=== PATIENT | female | born 1940 | race Caucasian/White ===

== ENCOUNTER 2018-05-06 14:53 | Inpatient (IN) | payer MEDICARE ==
[~2018-05-06] VITALS: Ht 160 cm; Wt 69.0 kg
[2018-05-06] MEDS ORDERED: normal saline 1000ML IV soln IVB ONE (15:15)
[2018-05-06 15:22] LABS: BASOPHILS # (AUTO) 0.1 X10'3 (0-0.2); BASOPHILS % (AUTO) 1.3 % (0-1); EOSINOPHILS # (AUTO) 0.2 X10'3 (0-0.9); EOSINOPHILS % (AUTO) 1.8 % (0-6); HEMATOCRIT 38.6 % (35.0-45.0); HEMOGLOBIN 12.9 g/dl (12.0-16.0); LYMPHOCYTES # (AUTO) 2.6 X10'3 (1.1-4.8); LYMPHOCYTES % (AUTO) 24.6 % (21-51); MEAN CORPUSCULAR HEMOGLOBIN 30.3 PG (27.0-31.0); MEAN CORPUSCULAR HGB CONC 33.5 % (33.0-36.5); MEAN CORPUSCULAR VOLUME 90.6 FL (78-98); MEAN PLATELET VOLUME 8.3 FL (7.4-10.4); MONOCYTES # (AUTO) 0.6 X10'3 (0-0.9); MONOCYTES % (AUTO) 5.3 % (2-12); NEUTROPHILS # (AUTO) 7.1 X10'3 (1.8-7.7); PLATELET COUNT 272 X10'3 (140-440); RED BLOOD COUNT 4.26 X10'6 (4.20-5.60); RED CELL DISTRIBUTION WIDTH 13.7 % (11.5-14.5); WHITE BLOOD COUNT 10.6 X10'3 (4.5-11.0)
[2018-05-06 15:35] LABS: ALANINE AMINOTRANSFERASE 16 U/L (12-78); ALBUMIN 3.7 G/DL (3.4-5.0); ALBUMIN/GLOBULIN RATIO 0.9 (1.1-1.5); ALKALINE PHOSPHATASE 66 IU/L (46-116); ANION GAP 11 (8-16); ASPARTATE AMINO TRANSFERASE 15 U/L (10-37); BILIRUBIN,TOTAL 0.3 MG/DL (0.1-1.0); BLOOD UREA NITROGEN 13 MG/DL (7-18); CALCIUM 9.7 MG/DL (8.5-10.1); CHLORIDE 103 MMOL/L (99-107); CREATININE 0.65 MG/DL (0.40-0.90); GLUCOSE 98 MG/DL (70-104); POTASSIUM 3.5 MMOL/L (3.5-5.1); SODIUM 141 MMOL/L (135-145); TOTAL CARBON DIOXIDE 26.8 MMOL/L (24-32); TOTAL PROTEIN 7.6 G/DL (6.4-8.2); eGFR 88 ML/MIN
[2018-05-06 15:37] LABS: PARTIAL THROMBOPLASTIN TIME 31 SECONDS (22-32); PROTHROMBIN TIME 10.2 SECONDS (9.0-12.0)
[2018-05-06 15:38] LABS: TROPONIN I < 0.04 NG/ML (0.0-0.05)
[2018-05-06] MEDS ORDERED: aspirin 325mg tablet PO ONE (16:15)
[2018-05-06] MEDS ORDERED: iohexol 350MG/ML 100ml bottle IV ONE (16:19)
[2018-05-06] MEDS ORDERED: temazepam 15mg capsule PO PRN (21:00)
[2018-05-06] MEDS ORDERED: acetaminophen 650mg rectal suppository RC PRN (21:40)
[2018-05-06] MEDS ORDERED: HYDROcodone/acetaminophen 5mg/325mg tablet PO PRN (21:40)
[2018-05-06] MEDS ORDERED: normal saline 1000ml 1,000 ML IV SCH (21:40)
[2018-05-06] MEDS ORDERED: metoclopramide 5 mg/ml inj IV PRN (21:40)
[2018-05-06] MEDS ORDERED: mag hydrox/Alum hydrox/simeth 30ml oral suspension PO PRN (21:40)
[2018-05-06] MEDS ORDERED: ondansetron/PF 4mg/2ml inj IV PRN (21:40)
[2018-05-06] MEDS ORDERED: acetaminophen 325mg tablet PO PRN ×2 (21:40)
[2018-05-06] MEDS ORDERED: diphenhydrAMINE 25mg capsule PO PRN (21:40)
[2018-05-06] MEDS ORDERED: HYDROmorphone 1 mg/ml syringe IV PRN (21:40)
[2018-05-06] MEDS ORDERED: diphenhydrAMINE 50 mg/ml inj IV PRN (21:40)
[2018-05-06] MEDS ORDERED: morphine 2 MG/ML inj. syringe IV PRN (21:40)
[2018-05-06] MEDS ORDERED: magnesium hydroxide 30ml (MOM) UD suspension PO PRN (21:40)
[2018-05-06] MEDS ORDERED: MULT1TAB74 PO (22:09)
[2018-05-06] MEDS ORDERED: LISI-642 PO (22:09)
[2018-05-06] MEDS ORDERED: SYN0.088T PO (22:09)
[2018-05-06 22:15] LABS: MAGNESIUM 2.1 MG/DL (1.5-2.4); PHOSPHORUS 3.7 MG/DL (2.3-4.5)
[2018-05-06 22:46] VITALS: BP_SYST 178; BP_SYST 181; BP_DIAS 72; BP_DIAS 73
[2018-05-06] MEDS: clopidogrel 75mg tablet PO SCH (23:14)
[2018-05-06] MEDS ORDERED: hydrALAZINE 20mg/ml inj. IV PRN (23:50)
[2018-05-07] MEDS ORDERED: IBUP-24 PO (00:19)
[2018-05-07 02:15] VITALS: BP 153/68
[2018-05-07 04:03] LABS: CLARITY,URINE CLEAR (Clear); COLOR,URINE YELLOW (Yellow); GLUCOSE, URINE NEGATIVE (Neg); KETONES,URINE NEGATIVE (Neg); LEUKOCYTE ESTERASE ,URINE TRACE (Neg); NITRITES, URINE NEGATIVE (Neg); OCCULT BLOOD,URINE TRACE-INTACT (Neg); PH,URINE 6.5 (4.8-8.0); PROTEIN,URINE NEGATIVE (Neg); UROBILINOGEN,URINE 0.2 E.U/dL (0.2-1.0)
[2018-05-07 04:04] LABS: UA COLLECTION TYPE CLN CATCH MIDSTREAM
[2018-05-07 04:09] LABS: RBC,URINE 0-2 /HPF (0-2); WBC,URINE 0-4 /HPF (0-4)
[2018-05-07 04:10] LABS: BACTERIA,URINE FEW /HPF (Neg); SQUAMOUS EPITHELIAL CELL,UR FEW /LPF (FEW)
[2018-05-07 06:00] VITALS: BP 147/71
[2018-05-07 06:26] LABS: BASOPHILS % (AUTO) 0.5 % (0-1); EOSINOPHILS # (AUTO) 0.1 X10'3 (0-0.9); EOSINOPHILS % (AUTO) 1.6 % (0-6); HEMATOCRIT 37.6 % (35.0-45.0); HEMOGLOBIN 12.7 g/dl (12.0-16.0); LYMPHOCYTES % (AUTO) 27.8 % (21-51); MEAN CORPUSCULAR HEMOGLOBIN 30.5 PG (27.0-31.0); MEAN CORPUSCULAR HGB CONC 33.7 % (33.0-36.5); MEAN CORPUSCULAR VOLUME 90.5 FL (78-98); MEAN PLATELET VOLUME 8.2 FL (7.4-10.4); MONOCYTES # (AUTO) 0.4 X10'3 (0-0.9); MONOCYTES % (AUTO) 5.2 % (2-12); NEUTROPHILS # (AUTO) 4.6 X10'3 (1.8-7.7); NEUTROPHILS % (AUTO) 64.9 % (42-75); PLATELET COUNT 240 X10'3 (140-440); RED BLOOD COUNT 4.15 X10'6 (4.20-5.60); RED CELL DISTRIBUTION WIDTH 13.6 % (11.5-14.5); WHITE BLOOD COUNT 7.1 X10'3 (4.5-11.0)
[2018-05-07 06:45] LABS: ALANINE AMINOTRANSFERASE 17 U/L (12-78); ALBUMIN 3.2 G/DL (3.4-5.0); ALBUMIN/GLOBULIN RATIO 0.9 (1.1-1.5); ALKALINE PHOSPHATASE 59 IU/L (46-116); ANION GAP 10 (8-16); ASPARTATE AMINO TRANSFERASE 15 U/L (10-37); BILIRUBIN,TOTAL 0.5 MG/DL (0.1-1.0); BLOOD UREA NITROGEN 11 MG/DL (7-18); CALCIUM 8.8 MG/DL (8.5-10.1); CHLORIDE 106 MMOL/L (99-107); CHOL/HDL RATIO 3.5 (0.00-4.99); CHOLESTEROL 187 MG/DL (0-200); CREATININE 0.61 MG/DL (0.40-0.90); GLUCOSE 87 MG/DL (70-104); HDL CHOLESTEROL 54 MG/DL (35-60); LDL CHOLESTEROL 121 MG/DL (50-100); POTASSIUM 3.3 MMOL/L (3.5-5.1); SODIUM 142 MMOL/L (135-145); TOTAL CARBON DIOXIDE 26.1 MMOL/L (24-32); TOTAL PROTEIN 6.7 G/DL (6.4-8.2); TRIGLYCERIDES 116 MG/DL (20-135); eGFR > 90 ML/MIN
[2018-05-07] MEDS ORDERED: potassium Cl 40MEQ/NS 500ml 500 ML IV PRN ×2 (07:00)
[2018-05-07] MEDS ORDERED: potassium Cl 20 mEq SR tablet PO PRN ×2 (07:00)
[2018-05-07 08:00] VITALS: BP_SYST 164; BP_SYST 169; BP_SYST 176; BP_DIAS 69; BP_DIAS 80; BP_DIAS 89
[2018-05-07] MEDS ORDERED: docusate sod 100mg capsule PO SCH (08:00)
[2018-05-07] MEDS: clopidogrel 75mg tablet PO SCH (08:00)
[2018-05-07] MEDS ORDERED: clopidogrel 75mg tablet PO SCH (08:00)
[2018-05-07] MEDS ORDERED: atorvastatin 20mg tablet PO SCH ×2 (08:00)
[2018-05-07] MEDS ORDERED: aspirin 81mg tab.chew PO SCH (08:30)
[2018-05-07 10:00] VITALS: BP 152/64
[2018-05-07] MEDS ORDERED: ASPI81TA52 PO (11:56)
[2018-05-07] MEDS ORDERED: famotidine 20mg tablet PO SCH (21:00)
[2018-05-08 05:24] LABS: RPR Non Reactive (Non Reactive)
== END 2018-05-07 13:35 | disposition home or self-care (01) | DRG 69 ==
LOC: ER 14:54 → ORTHO 4S 21:40 → CMPBEDREQ 23:58
PROVIDERS: ADMIT Family Medicine; ATTEND Hospitalist
PROC: B3251ZZ Computerized Tomography (CT Scan) of Bilateral Common Carotid Arteries using Low Osmolar Contrast (ICD-10-PCS; principal; 2018-05-06)
PROC: B32G1ZZ Computerized Tomography (CT Scan) of Bilateral Vertebral Arteries using Low Osmolar Contrast (ICD-10-PCS; 2018-05-06)
PROC: B3281ZZ Computerized Tomography (CT Scan) of Bilateral Internal Carotid Arteries using Low Osmolar Contrast (ICD-10-PCS; 2018-05-06)
DX: G45.9 Transient cerebral ischemic attack, unspecified (principal); I10 Essential (primary) hypertension; R42 Dizziness and giddiness; Z79.899 Other long term (current) drug therapy; Z79.82 Long term (current) use of aspirin; Z79.890 Hormone replacement therapy; Z86.73 Personal history of transient ischemic attack (TIA), and cerebral infarction without residual deficits
CPT/HCPCS: 36415; 70450; 70496; 70498; 70551; 71045; 80053; 80061; 81001; 83735; 83880; 84100; 84443; 84484; 85025; 85610; 85730; 86592; 87070; 87088; 93005; 93306; 93880; 96360; 99285; G0378; Q9967

== ENCOUNTER 2023-11-19 03:49 | Emergency (ER) | payer MEDICARE ==
[~2023-11-19] VITALS: Ht 157.5 cm; Wt 62.9 kg
[~2023-11-19 03:49] MED LIST: ASPI81TA52 PO; IBUP-24 PO; LISI-642 PO; LORA10TA61 PO; MULT-620 PO
[2023-11-19 05:10] VITALS: TEMP 97.5
[2023-11-19 05:44] LABS: BASOPHILS # (AUTO) 0.1 X10'3 (0-0.2); BASOPHILS % (AUTO) 0.5 % (0-1); EOSINOPHILS # (AUTO) 0.1 X10'3 (0-0.9); EOSINOPHILS % (AUTO) 0.8 % (0-6); HEMATOCRIT 43.2 % (35.0-45.0); HEMOGLOBIN 14.8 g/dl (12.0-16.0); LYMPHOCYTES # (AUTO) 2.1 X10'3 (1.1-4.8); LYMPHOCYTES % (AUTO) 21.7 % (21-51); MEAN CORPUSCULAR HEMOGLOBIN 32.5 PG (27.0-31.0); MEAN CORPUSCULAR HGB CONC 34.3 g/dL (33.0-36.5); MEAN CORPUSCULAR VOLUME 94.6 FL (78-98); MEAN PLATELET VOLUME 8.5 FL (7.4-10.4); MONOCYTES # (AUTO) 0.7 X10'3 (0-0.9); NEUTROPHILS # (AUTO) 6.9 X10'3 (1.8-7.7); PLATELET COUNT 278 X10'3 (140-440); RED BLOOD COUNT 4.57 X10'6 (4.20-5.60); RED CELL DISTRIBUTION WIDTH 13.4 % (11.5-14.5); WHITE BLOOD COUNT 9.8 X10'3 (4.5-11.0)
[2023-11-19 06:04] LABS: ALBUMIN 3.4 G/DL (3.4-5.0); ANION GAP 7 (8-16); BLOOD UREA NITROGEN 13 MG/DL (7-18); BUN/CREATININE RATIO 21.3 (10.0-20.0); CALCIUM 9.1 MG/DL (8.5-10.1); CHLORIDE 100 MMOL/L (99-107); CREATININE 0.61 MG/DL (0.40-0.90); GLUCOSE 88 MG/DL (70-104); POTASSIUM 4.2 MMOL/L (3.5-5.1); PRO BRAIN NATRIURETIC PEPTIDE 75 PG/ML (0-450); SODIUM 135 MMOL/L (135-145); TOTAL CARBON DIOXIDE 27.7 MMOL/L (24-32); eCRCL 54 ML/MIN; eGFR > 90 ML/MIN
[2023-11-19] MEDS: normal saline 1000ml 1,000 ML IV SCH (06:15)
[2023-11-19] MEDS ORDERED: ibuprofen tablet 400 MG TABLET PO PRN (07:05)
[2023-11-19] MEDS: aspirin 81mg, enteric-coated 1 TAB TABLET.DR PO ONE (07:34)
[2023-11-19] MEDS: ketorolac tromethamine 15mg/ml inj. IV ONE (07:34)
[2023-11-19 07:47] LABS: BILIRUBIN,URINE NEGATIVE (Neg); CLARITY,URINE CLEAR (Clear); COLOR,URINE YELLOW (Yellow); GLUCOSE, URINE NEGATIVE (Neg); KETONES,URINE NEGATIVE (Neg); LEUKOCYTE ESTERASE ,URINE NEGATIVE (Neg); NITRITES, URINE NEGATIVE (Neg); OCCULT BLOOD,URINE NEGATIVE (Neg); PROTEIN,URINE NEGATIVE (Neg); UROBILINOGEN,URINE 0.2 E.U/dL (0.2-1.0)
[2023-11-19 07:53] LABS: UA COLLECTION TYPE STRAIGHT CATH
[2023-11-19] MEDS: clopidogrel 75mg tablet PO ONE (07:56)
[2023-11-19 08:09] LABS: ALANINE AMINOTRANSFERASE 12 U/L (12-78); ALBUMIN 2.9 G/DL (3.4-5.0); ALBUMIN/GLOBULIN RATIO 0.9 (1.1-1.5); ALKALINE PHOSPHATASE 63 IU/L (46-116); ANION GAP 8 (8-16); ASPARTATE AMINO TRANSFERASE 12 U/L (10-37); BILIRUBIN,TOTAL 0.7 MG/DL (0.1-1.0); BLOOD UREA NITROGEN 12 MG/DL (7-18); CALCIUM 8.3 MG/DL (8.5-10.1); CHLORIDE 104 MMOL/L (99-107); CREATININE 0.63 MG/DL (0.40-0.90); GLUCOSE 83 MG/DL (70-104); POTASSIUM 3.8 MMOL/L (3.5-5.1); SODIUM 137 MMOL/L (135-145); TOTAL PROTEIN 6.3 G/DL (6.4-8.2); eCRCL 53 ML/MIN; eGFR 90 ML/MIN
[2023-11-19 08:16] LABS: MAGNESIUM 1.9 MG/DL (1.5-2.4)
[2023-11-19 10:23] VITALS: BP 157/96; PULSE 64; RESP 16; O2SAT 98
== END 2023-11-19 10:28 | disposition home or self-care (01) ==
LOC: ER 03:50
DX: R53.1 Weakness (principal); I10 Essential (primary) hypertension; G89.29 Other chronic pain; Z88.8 Allergy status to other drugs, medicaments and biological substances; Z79.82 Long term (current) use of aspirin; Z79.1 Long term (current) use of non-steroidal anti-inflammatories (NSAID); Z86.73 Personal history of transient ischemic attack (TIA), and cerebral infarction without residual deficits; Z90.49 Acquired absence of other specified parts of digestive tract
CPT/HCPCS: 36415; 70450; 71045; 80048; 80053; 81003; 83605; 83735; 83880; 84145; 84439; 84443; 84484; 85025; 87040; 93005; 93306; 96361; 96374; 99285; J1885; J7030; C1758

== ENCOUNTER 2024-01-20 11:18 | Emergency (ER) | payer MEDICARE ==
[~2024-01-20] VITALS: Ht 157.5 cm; Wt 63.1 kg
[2024-01-20] MEDS: normal saline 500ml IV soln 500 ML IV SCH (11:48)
[2024-01-20 11:57] LABS: BASOPHILS # (AUTO) 0.1 X10'3 (0-0.2); EOSINOPHILS # (AUTO) 0.1 X10'3 (0-0.9); HEMATOCRIT 42.8 % (35.0-45.0); LYMPHOCYTES # (AUTO) 1.7 X10'3 (1.1-4.8); MEAN CORPUSCULAR HEMOGLOBIN 31.2 PG (27.0-31.0); MEAN CORPUSCULAR HGB CONC 32.8 g/dL (33.0-36.5); MEAN CORPUSCULAR VOLUME 95.1 FL (78-98); MEAN PLATELET VOLUME 8.2 FL (7.4-10.4); MONOCYTES # (AUTO) 0.5 X10'3 (0-0.9); MONOCYTES % (AUTO) 6.4 % (2-12); NEUTROPHILS # (AUTO) 5.8 X10'3 (1.8-7.7); NEUTROPHILS % (AUTO) 70.6 % (42-75); PLATELET COUNT 301 X10'3 (140-440); RED CELL DISTRIBUTION WIDTH 13.9 % (11.5-14.5); WHITE BLOOD COUNT 8.1 X10'3 (4.5-11.0)
[2024-01-20 12:10] LABS: ALBUMIN 3.4 G/DL (3.4-5.0); ANION GAP 8 (8-16); BLOOD UREA NITROGEN 9 MG/DL (7-18); BUN/CREATININE RATIO 10.5 (10.0-20.0); CALCIUM 9.2 MG/DL (8.5-10.1); CHLORIDE 104 MMOL/L (99-107); CREATININE 0.86 MG/DL (0.40-0.90); GLUCOSE 109 MG/DL (70-104); POTASSIUM 3.9 MMOL/L (3.5-5.1); PRO BRAIN NATRIURETIC PEPTIDE 128 PG/ML (0-450); SODIUM 136 MMOL/L (135-145); TOTAL CARBON DIOXIDE 23.9 MMOL/L (24-32); eCRCL 38 ML/MIN; eGFR 63 ML/MIN
[2024-01-20] MEDS ORDERED: ONDA-245 PO (12:16)
[2024-01-20] MEDS ORDERED: MECL-231 PO (12:16)
[2024-01-20 12:49] VITALS: BP 132/95; PULSE 70; RESP 15; TEMP 98.1; O2SAT 96
== END 2024-01-20 12:53 | disposition home or self-care (01) ==
LOC: ER 11:19
DX: R42 Dizziness and giddiness (principal); R11.0 Nausea; E86.0 Dehydration; I10 Essential (primary) hypertension; G89.29 Other chronic pain; Z88.8 Allergy status to other drugs, medicaments and biological substances; Z79.82 Long term (current) use of aspirin; Z79.899 Other long term (current) drug therapy; Z79.1 Long term (current) use of non-steroidal anti-inflammatories (NSAID); Z90.49 Acquired absence of other specified parts of digestive tract; Z98.890 Other specified postprocedural states; Z86.73 Personal history of transient ischemic attack (TIA), and cerebral infarction without residual deficits; Z72.89 Other problems related to lifestyle
CPT/HCPCS: 36415; 71045; 80048; 83880; 84484; 85025; 93005; 99285; J7030; J7040; 96360